=== PATIENT | female | born 1965 | race Caucasian/White ===

== ENCOUNTER 2020-12-13 12:13 | Emergency (ER) | payer OTHER ==
[2020-12-13 12:19] VITALS: BMI 40.6
[2020-12-13] MEDS ORDERED: ACETAMINOPHEN 1000 MG/100 ML VIAL IVPB ONE (13:15)
[2020-12-13] MEDS ORDERED: SODIUM CHLORIDE 1,000 ML IV STA (13:15)
[2020-12-13] MEDS ORDERED: morphine CARPU-JECT 2 MG/1 ML DISP.SYRIN IVPUSH ONE (13:21)
[2020-12-13] MEDS ORDERED: ACETAMINOPHEN 500 MG TABLET (FP) PO ONE (13:21)
[2020-12-13] MEDS ORDERED: ACETAMINOPHEN INJECTION 100 ML IVPB ONE (13:25)
[2020-12-13] MEDS ORDERED: morphine SULFATE 4 MG/ML VIAL ONE (14:18)
[2020-12-13 14:35] LABS: BASO % 0.5 % (0-2.0); EOS % 1.7 % (0-4.5); EPI CELLS >36 /uL (0-25.1); HEMATOCRIT 36.3 % (32.4-45.2); HEMOGLOBIN 12.3 GM/dL (10.7-15.3); HYALINE CASTS 2 /uL (0-3.1); LYMPH % 17.4 % (8-40); MCH 28.7 pg (25.7-33.7); MCHC 33.9 g/dl (32.0-36.0); MEAN CELL VOLUME 84.8 fl (80-96); MEAN PLT VOLUME 7.7 fl (7.5-11.1); MONO % 6.4 % (3.8-10.2); PH,URINE 6.5 (5.0-8.0); PLATELET COUNT 354 10^3/uL (134-434); RBC 4.28 M/mm3 (3.60-5.2); RDW 15.9 % (11.6-15.6); URINE APPEARANCE CLOUDY; URINE BACTERIA 1165 /uL (0-1359); URINE BILIRUBIN NEGATIVE (NEGATIVE); URINE COLOR YELLOW; URINE GLUCOSE (UA) 3+ (NEGATIVE); URINE KETONE NEGATIVE (NEGATIVE); URINE LEUK ESTERASE NEGATIVE (NEGATIVE); URINE NITRITE NEGATIVE (NEGATIVE); URINE PROTEIN 2+ (NEGATIVE); URINE UROBILINOGEN 0.2 mg/dL (0.2-1.0); URINE WBC 21 /uL (0-25.8); WHITE BLOOD COUNT 7.8 K/mm3 (4.0-10.0)
[2020-12-13] MEDS ORDERED: GABAPENTIN 300 MG CAPSULE PO ONE (14:38)
[2020-12-13] MEDS ORDERED: GABAPENTIN 100 MG CAPSULE ONE (14:40)
[2020-12-13 14:54] LABS: CHLORIDE 101 mmol/L (98-107); SODIUM 139 mmol/L (136-145)
[2020-12-13 14:57] LABS: CALCIUM 9.4 mg/dL (8.5-10.1); GLUCOSE,RANDOM 186 mg/dL (74-106)
[2020-12-13 14:58] LABS: ALBUMIN 3.4 g/dl (3.4-5.0); ANION GAP 9 MMOL/L (8-16); BLOOD UREA NITROGEN 20.5 mg/dL (7-18); CO2 28 mmol/L (21-32); LIPASE 172 U/L (73-393)
[2020-12-13 15:00] LABS: CREATININE 0.9 mg/dL (0.55-1.3); SGOT/AST 8 U/L (15-37); SGPT/ALT 21 U/L (13-61)
[2020-12-13 15:02] LABS: BILIRUBIN,TOTAL 0.3 mg/dL (0.2-1); TOT PROT 7.8 g/dl (6.4-8.2)
[2020-12-13 15:03] LABS: ALK PHOS 158 U/L (45-117)
[2020-12-13 15:38] LABS: URINE RBC 42.5 /uL (0-23.9)
[2020-12-13] MEDS ORDERED: SODIUM CHLORIDE 0.9% 500 ML INFUS.BAG IV ONE (16:48)
[2020-12-13 17:31] VITALS: BP 116/54; PULSE 95; TEMP 98.6
== END 2020-12-13 17:46 | disposition home or self-care (01) ==
LOC: JER 12:13
PROC: 3E033NZ Introduction of Analgesics, Hypnotics, Sedatives into Peripheral Vein, Percutaneous Approach (ICD-10-PCS; principal; 2020-12-13)
PROC: 3E033GC Introduction of Other Therapeutic Substance into Peripheral Vein, Percutaneous Approach (ICD-10-PCS; 2020-12-13)
PROC: 3E0337Z Introduction of Electrolytic and Water Balance Substance into Peripheral Vein, Percutaneous Approach (ICD-10-PCS; 2020-12-13)
DX: R10.9 Unspecified abdominal pain (principal)
CPT/HCPCS: 36415; 71045-TC-FY; 76705-TC; 80053; 81003; 83690; 84484; 85025; 87086; 96361; 96374; 96375; 99284-25; J0131

== ENCOUNTER 2023-04-07 15:01 | Inpatient (IN) | payer OTHER ==
[2023-04-07] MEDS ORDERED: ACETAMINOPHEN 1000 MG/100 ML BAG IVPB ONE (16:42)
[2023-04-07] MEDS ORDERED: SODIUM CHLORIDE 1,000 ML IV STA (16:42)
[2023-04-07] MEDS ORDERED: FAMOTIDINE 20 MG/50 ML IVPB 20 MG/50 ML MG IVPB ONE ×2 (16:42→17:22)
[2023-04-07] MEDS ORDERED: MAG HYDROX/AL HYDROX/SIMETH 30 ML UNIT-DOSE CUP PO ONE (16:42)
[2023-04-07] MEDS ORDERED: MAG HYDROX/AL HYDROX/SIMETH 30 ML UNIT-DOSE CUP ONE (17:21)
[2023-04-07] MEDS ORDERED: ACETAMINOPHEN INJECTION 100 ML IVPB ONE (17:24)
[2023-04-07 17:39] LABS: VENOUS BASE EXCESS -0.3 mmol/L (-2-2); VENOUS O2 SATURATION 49.5 % (70-80); VENOUS PCO2 48.6 mmHg (38-52); VENOUS PH 7.344 (7.310-7.410)
[2023-04-07 17:43] LABS: BASO % 0.3 % (0-2.0); EOS % 0.2 % (0-4.5); HEMATOCRIT 36.2 % (32.4-45.2); HEMOGLOBIN 11.9 GM/dL (10.7-15.3); LYMPH % 9.8 % (8-40); MCH 27.2 pg (25.7-33.7); MCHC 32.9 g/dl (32.0-36.0); MEAN CELL VOLUME 82.8 fl (80-96); MEAN PLT VOLUME 7.2 fl (7.5-11.1); MONO % 6.3 % (3.8-10.2); NEUT % 83.4 % (42.8-82.8); PLATELET COUNT 556 10^3/uL (134-434); RBC 4.37 M/mm3 (3.60-5.2); RDW 17.1 % (11.6-15.6); WHITE BLOOD COUNT 14.3 K/mm3 (4.0-10.0)
[2023-04-07 17:51] LABS: EPI CELLS 36 /uL (0-25.1); HYALINE CASTS 3 /uL (0-3.1); PH,URINE 5.5 (5.0-8.0); URINE APPEARANCE CLOUDY; URINE BACTERIA 242 /uL (0-1359); URINE BILIRUBIN NEGATIVE (NEGATIVE); URINE COLOR YELLOW; URINE GLUCOSE (UA) 1+ (NEGATIVE); URINE KETONE TRACE (NEGATIVE); URINE LEUK ESTERASE 1+ (NEGATIVE); URINE NITRITE NEGATIVE (NEGATIVE); URINE PROTEIN 2+ (NEGATIVE); URINE RBC 27 /uL (0-23.9); URINE UROBILINOGEN 0.2 mg/dL (0.2-1.0); URINE WBC 226 /uL (0-25.8)
[2023-04-07 17:54] LABS: CHLORIDE 94 mmol/L (98-107); POTASSIUM 3.4 mmol/L (3.5-5.1); SODIUM 132 mmol/L (136-145)
[2023-04-07 17:57] LABS: ANION GAP 11 mmol/L (4-13); CO2 27 mmol/L (21-32); MAGNESIUM 1.8 mg/dL (1.8-2.4)
[2023-04-07 18:00] LABS: CREATININE 1.3 mg/dL (0.55-1.3); SGOT/AST 5 U/L (15-37); SGPT/ALT 11 U/L (13-61)
[2023-04-07 18:01] LABS: TOT PROT 7.6 g/dl (6.4-8.2)
[2023-04-07 18:02] LABS: BILIRUBIN,TOTAL 0.4 mg/dL (0.2-1)
[2023-04-07 18:03] LABS: ALK PHOS 164 U/L (45-117)
[2023-04-07 18:04] LABS: GLUCOSE,RANDOM 427 mg/dL (74-106)
[2023-04-07] MEDS ORDERED: POTASSIUM CHLORIDE ORAL LIQUID 20 MEQ/15 ML PO ONE (18:10)
[2023-04-07] MEDS ORDERED: KETOROLAC TROMETHAMINE 30 MG/1 ML VIAL IM ONE (18:12)
[2023-04-07] MEDS ORDERED: KCL 10 MEQ IVPB 10 MEQ/100 ML INFUS.BAG IVPB ONE ×2 (18:12→19:00)
[2023-04-07] MEDS ORDERED: POTASSIUM CHLORIDE ORAL LIQUID 20 MEQ/15 ML ONE (18:12)
[2023-04-07] MEDS: KCL 10 MEQ IVPB 10 MEQ/100 ML INFUS.BAG IVPB SCH ×3 (18:12→19:57)
[2023-04-07] MEDS ORDERED: KETOROLAC TROMETHAMINE 30 MG/1 ML VIAL ONE (18:24)
[2023-04-07 18:34] LABS: LACTIC ACID 2.4 mmol/L (0.4-2.0)
[2023-04-07] MEDS ORDERED: ONDANSETRON *ODT* 4 MG TABLET SL ONE (19:01)
[2023-04-07] MEDS ORDERED: CEFTRIAXONE 1,000 MG in DEXTROSE 5%-WATER - 50 ML IVPB ONE (19:11)
[2023-04-07 19:28] LABS: CHLORIDE 98 mmol/L (98-107); POTASSIUM 4.6 mmol/L (3.5-5.1); SODIUM 132 mmol/L (136-145)
[2023-04-07 19:33] LABS: ALBUMIN 2.7 g/dl (3.4-5.0); ANION GAP 10 mmol/L (4-13); BLOOD UREA NITROGEN 27.5 mg/dL (7-18); CALCIUM 8.7 mg/dL (8.5-10.1); CO2 24 mmol/L (21-32)
[2023-04-07 19:34] LABS: LIPASE 71 U/L (73-393)
[2023-04-07 19:35] LABS: SGPT/ALT 10 U/L (13-61)
[2023-04-07 19:36] LABS: CREATININE 1.2 mg/dL (0.55-1.3); SGOT/AST 8 U/L (15-37)
[2023-04-07 19:37] LABS: BILIRUBIN,TOTAL 0.4 mg/dL (0.2-1)
[2023-04-07 19:39] LABS: ALK PHOS 147 U/L (45-117)
[2023-04-07 19:52] LABS: GLUCOSE,RANDOM 409 mg/dL (74-106)
[2023-04-07] MEDS ORDERED: INSULIN REGULAR HUMAN 100 UNITS/ML *VIAL IVPUSH ONE (19:55)
[2023-04-07] MEDS ORDERED: CEFTRIAXONE 1 GM/50 ML BAG ONE (19:58)
[2023-04-07] MEDS ORDERED: PIPERACILLIN/TAZOB 3.375 GM 3.375 GM in DEXTROSE 5%-WATER - 50 ML IVPB ONE (21:30)
[2023-04-07] MEDS ORDERED: VANCOMYCIN 1,000 MG in DEXTROSE 5%-WATER - 250 ML IVPB ONE (21:30)
[2023-04-07] MEDS ORDERED: PIPERACILLIN/TAZOB 3.375 GM 3.375 GM/50 ML BAG IVPB ONE (21:37)
[2023-04-07] MEDS ORDERED: VANCOMYCIN 1 GRAM (PRE-DOCKED) 1,000 MG/250 ML BAG IVPB ONE (21:37)
[2023-04-07] MEDS ORDERED: ALBUTEROL SO4 HFA INHALER IH PRN (22:59)
[2023-04-08] MEDS ORDERED: PIPERACILLIN/TAZOB 4.5 GM 4.5 GM/100 ML BAG IVPB ONE (02:10)
[2023-04-08] MEDS ORDERED: ACETAMINOPHEN 325 MG TABLET (FP) ONE (02:23)
[2023-04-08] MEDS: ACETAMINOPHEN 325 MG TABLET (FP) PO PRN ×2 (02:30→21:49)
[2023-04-08] MEDS: SODIUM CHLORIDE 1,000 ML IV SCH ×2 (02:30→18:22)
[2023-04-08] MEDS: PIPERACILLIN/TAZOB 4.5 GM 4.5 GM in DEXTROSE 5%-WATER 100 ML IVPB SCH ×2 (02:30→10:09)
[2023-04-08] MEDS: GABAPENTIN 400 MG CAPSULE PO SCH ×3 (06:42→21:48)
[2023-04-08] MEDS: INSULIN SLIDING SCALE (NOVOLOG) 1 VIAL SQ SCH ×4 (06:55→22:19)
[2023-04-08 09:02] LABS: BASO % 0.7 % (0-2.0); EOS % 1.1 % (0-4.5); HEMATOCRIT 32.2 % (32.4-45.2); HEMOGLOBIN 10.5 GM/dL (10.7-15.3); LYMPH % 16.1 % (8-40); MCH 27.3 pg (25.7-33.7); MCHC 32.6 g/dl (32.0-36.0); MEAN CELL VOLUME 83.8 fl (80-96); MONO % 6.6 % (3.8-10.2); NEUT % 75.5 % (42.8-82.8); PLATELET COUNT 464 10^3/uL (134-434); RBC 3.85 M/mm3 (3.60-5.2); RDW 17.1 % (11.6-15.6); WHITE BLOOD COUNT 11.1 K/mm3 (4.0-10.0)
[2023-04-08] MEDS ORDERED: VANCOMYCIN 1,000 MG in DEXTROSE 5%-WATER - 250 ML IVPB SCH (10:00)
[2023-04-08] MEDS: LOSARTAN POTASSIUM 50 MG TABLET PO SCH (10:13)
[2023-04-08] MEDS: amLODIPine BESYLATE 10 MG TABLET (FP) PO SCH (10:13)
[2023-04-08] MEDS: PANTOPRAZOLE 20 MG TABLET PO SCH (10:13)
[2023-04-08] MEDS: ASPIRIN 81 MG CHEWABLE TABLETS PO SCH (10:13)
[2023-04-08] MEDS ORDERED: ONDANSETRON 4 MG/2 ML VIAL IVPUSH PRN (10:40)
[2023-04-08 10:57] LABS: BLOOD UREA NITROGEN 26.5 mg/dL (7-18); CALCIUM 9.3 mg/dL (8.5-10.1); CHLORIDE 100 mmol/L (98-107); CO2 23 mmol/L (21-32); CREATININE 1.1 mg/dL (0.55-1.3); GLUCOSE,RANDOM 243 mg/dL (74-106); POTASSIUM 3.7 mmol/L (3.5-5.1); SODIUM 133 mmol/L (136-145)
[2023-04-08] MEDS: PIPERACILLIN/TAZOB 3.375 GM 3.375 GM in DEXTROSE 5%-WATER - 50 ML IVPB SCH (18:35)
[2023-04-08] MEDS ORDERED: INSULIN (NOVOLOG) ASPART 100 UNITS/ML 10ML VIAL ONE (21:36)
[2023-04-08] MEDS: ATORVASTATIN CA 40 MG TABLET (FP) PO SCH (21:48)
[2023-04-08] MEDS ORDERED: INSULIN (LEVEMIR) 100 UNITS/ML UNITS SQ SCH (22:00)
[2023-04-08] MEDS ORDERED: VANCOMYCIN/WATER FOR INJ (PEG) 1,000 MG/200 ML BAG IVPB ONE (22:00)
[2023-04-09] MEDS: SODIUM CHLORIDE 1,000 ML IV SCH (02:04)
[2023-04-09] MEDS: PIPERACILLIN/TAZOB 3.375 GM 3.375 GM in DEXTROSE 5%-WATER - 50 ML IVPB SCH ×3 (02:05→18:16)
[2023-04-09] MEDS: GABAPENTIN 400 MG CAPSULE PO SCH ×3 (07:07→21:47)
[2023-04-09] MEDS: INSULIN (NOVOLOG) ASPART 100 UNITS/ML 10ML VIAL SQ SCH ×3 (07:10→17:18)
[2023-04-09] MEDS: INSULIN (LEVEMIR) 100 UNITS/ML UNITS SQ SCH ×2 (07:12→17:17)
[2023-04-09 07:57] LABS: BASO % 0.6 % (0-2.0); EOS % 1.9 % (0-4.5); HEMATOCRIT 28.5 % (32.4-45.2); HEMOGLOBIN 9.4 GM/dL (10.7-15.3); LYMPH % 14.8 % (8-40); MCH 27.7 pg (25.7-33.7); NEUT % 74.7 % (42.8-82.8); PLATELET COUNT 372 10^3/uL (134-434); RDW 16.9 % (11.6-15.6); WHITE BLOOD COUNT 6.9 K/mm3 (4.0-10.0)
[2023-04-09 08:19] LABS: POTASSIUM 3.5 mmol/L (3.5-5.1)
[2023-04-09 08:21] LABS: BLOOD UREA NITROGEN 20.3 mg/dL (7-18); CALCIUM 8.3 mg/dL (8.5-10.1)
[2023-04-09 08:24] LABS: CREATININE 0.8 mg/dL (0.55-1.3)
[2023-04-09 08:26] LABS: BILIRUBIN,TOTAL 0.2 mg/dL (0.2-1)
[2023-04-09 08:36] LABS: ALBUMIN 2.3 g/dl (3.4-5.0)
[2023-04-09] MEDS: ASPIRIN 81 MG CHEWABLE TABLETS PO SCH (10:27)
[2023-04-09] MEDS: amLODIPine BESYLATE 10 MG TABLET (FP) PO SCH (10:27)
[2023-04-09] MEDS: LOSARTAN POTASSIUM 50 MG TABLET PO SCH (10:27)
[2023-04-09] MEDS: PANTOPRAZOLE 20 MG TABLET PO SCH (10:27)
[2023-04-09] MEDS: INSULIN SLIDING SCALE (NOVOLOG) 1 VIAL SQ SCH ×4 (10:29→21:46)
[2023-04-09] MEDS: ACETAMINOPHEN 325 MG TABLET (FP) PO PRN ×2 (10:48→21:52)
[2023-04-09 12:55] LABS: INR 1.04 (0.83-1.09); PROTHROMBIN TIME (PATIENT) 12.1 SEC (9.7-13.0)
[2023-04-09 17:01] LABS: BF WBC & OTHER NUCLEATED CELLS 2770 /mm3
[2023-04-09 17:30] LABS: BODY FLUID MONOCYTE 4 %
[2023-04-09 17:31] LABS: BODY FLUID MACROPHAGES 11 %; BODY FLUID MESOTHELIAL 5 %
[2023-04-09] MEDS ORDERED: INSULIN (NOVOLOG) ASPART 100 UNITS/ML 10ML VIAL ONE (21:16)
[2023-04-09] MEDS: ATORVASTATIN CA 40 MG TABLET (FP) PO SCH (21:47)
[2023-04-10] MEDS: SODIUM CHLORIDE 1,000 ML IV SCH (02:27)
[2023-04-10] MEDS: PIPERACILLIN/TAZOB 3.375 GM 3.375 GM in DEXTROSE 5%-WATER - 50 ML IVPB SCH ×3 (02:28→18:03)
[2023-04-10] MEDS: GABAPENTIN 400 MG CAPSULE PO SCH ×3 (06:34→21:20)
[2023-04-10] MEDS: INSULIN SLIDING SCALE (NOVOLOG) 1 VIAL SQ SCH ×4 (06:54→21:21)
[2023-04-10] MEDS: INSULIN (LEVEMIR) 100 UNITS/ML UNITS SQ SCH ×2 (06:54→16:40)
[2023-04-10] MEDS: INSULIN (NOVOLOG) ASPART 100 UNITS/ML 10ML VIAL SQ SCH ×3 (06:55→16:39)
[2023-04-10 09:08] LABS: HEMATOCRIT 27.7 % (32.4-45.2); HEMOGLOBIN 9.1 GM/dL (10.7-15.3); MCH 27.5 pg (25.7-33.7); MCHC 32.7 g/dl (32.0-36.0); PLATELET COUNT 412 10^3/uL (134-434); RDW 16.6 % (11.6-15.6); WHITE BLOOD COUNT 6.5 K/mm3 (4.0-10.0)
[2023-04-10 09:20] LABS: POTASSIUM 3.6 mmol/L (3.5-5.1)
[2023-04-10 09:23] LABS: CALCIUM 8.5 mg/dL (8.5-10.1)
[2023-04-10 09:24] LABS: ALBUMIN 2.2 g/dl (3.4-5.0); BLOOD UREA NITROGEN 15.3 mg/dL (7-18); MAGNESIUM 1.7 mg/dL (1.8-2.4)
[2023-04-10 09:26] LABS: CREATININE 0.8 mg/dL (0.55-1.3)
[2023-04-10 09:27] LABS: BILIRUBIN,TOTAL 0.2 mg/dL (0.2-1); TOT PROT 6.1 g/dl (6.4-8.2)
[2023-04-10 09:31] LABS: IRON SERUM 33 ug/dL (50-175); TOTAL IRON BINDING CAPACITY 230 ug/dL (250-450)
[2023-04-10] MEDS: ASPIRIN 81 MG CHEWABLE TABLETS PO SCH (09:59)
[2023-04-10] MEDS: amLODIPine BESYLATE 10 MG TABLET (FP) PO SCH (09:59)
[2023-04-10] MEDS: LOSARTAN POTASSIUM 50 MG TABLET PO SCH (09:59)
[2023-04-10] MEDS: PANTOPRAZOLE 20 MG TABLET PO SCH (09:59)
[2023-04-10] MEDS: ACETAMINOPHEN 325 MG TABLET (FP) PO PRN ×2 (10:04→19:57)
[2023-04-10] MEDS ORDERED: IRON SUCROSE INJECTION 200 MG in SODIUM CHLORIDE 90 ML IVPB ONE (13:30)
[2023-04-10] MEDS: ATORVASTATIN CA 40 MG TABLET (FP) PO SCH (21:20)
[2023-04-10 22:49] VITALS: BMI 30.7
[2023-04-11] MEDS: PIPERACILLIN/TAZOB 3.375 GM 3.375 GM in DEXTROSE 5%-WATER - 50 ML IVPB SCH ×3 (01:21→17:35)
[2023-04-11] MEDS: SODIUM CHLORIDE 1,000 ML IV SCH ×2 (01:23→13:52)
[2023-04-11] MEDS: ACETAMINOPHEN 325 MG TABLET (FP) PO PRN ×3 (05:11→22:56)
[2023-04-11] MEDS: GABAPENTIN 400 MG CAPSULE PO SCH ×3 (05:11→22:55)
[2023-04-11] MEDS: INSULIN (LEVEMIR) 100 UNITS/ML UNITS SQ SCH ×2 (06:38→17:11)
[2023-04-11] MEDS: INSULIN (NOVOLOG) ASPART 100 UNITS/ML 10ML VIAL SQ SCH ×3 (06:40→17:14)
[2023-04-11] MEDS: INSULIN SLIDING SCALE (NOVOLOG) 1 VIAL SQ SCH ×4 (06:43→23:01)
[2023-04-11] MEDS: amLODIPine BESYLATE 10 MG TABLET (FP) PO SCH (10:27)
[2023-04-11] MEDS: LOSARTAN POTASSIUM 50 MG TABLET PO SCH (10:27)
[2023-04-11] MEDS: PANTOPRAZOLE 20 MG TABLET PO SCH (10:27)
[2023-04-11] MEDS: ASPIRIN 81 MG CHEWABLE TABLETS PO SCH (10:27)
[2023-04-11] MEDS ORDERED: INSULIN (NOVOLOG) ASPART 100 UNITS/ML 10ML VIAL ONE (21:29)
[2023-04-11] MEDS: ATORVASTATIN CA 40 MG TABLET (FP) PO SCH (22:55)
[2023-04-12] MEDS: SODIUM CHLORIDE 1,000 ML IV SCH ×3 (00:48→23:03)
[2023-04-12] MEDS: PIPERACILLIN/TAZOB 3.375 GM 3.375 GM in DEXTROSE 5%-WATER - 50 ML IVPB SCH ×3 (02:32→18:10)
[2023-04-12] MEDS: ACETAMINOPHEN 325 MG TABLET (FP) PO PRN ×2 (07:16→18:11)
[2023-04-12] MEDS: GABAPENTIN 400 MG CAPSULE PO SCH ×3 (07:16→23:04)
[2023-04-12] MEDS: INSULIN SLIDING SCALE (NOVOLOG) 1 VIAL SQ SCH ×4 (07:17→23:16)
[2023-04-12] MEDS: INSULIN (LEVEMIR) 100 UNITS/ML UNITS SQ SCH ×2 (07:17→17:29)
[2023-04-12] MEDS: INSULIN (NOVOLOG) ASPART 100 UNITS/ML 10ML VIAL SQ SCH ×3 (07:17→17:32)
[2023-04-12 08:18] LABS: EOS % 1.9 % (0-4.5); HEMATOCRIT 30.7 % (32.4-45.2); HEMOGLOBIN 10.3 GM/dL (10.7-15.3); LYMPH % 23.3 % (8-40); MCH 27.6 pg (25.7-33.7); MCHC 33.4 g/dl (32.0-36.0); MEAN CELL VOLUME 82.6 fl (80-96); MEAN PLT VOLUME 6.7 fl (7.5-11.1); MONO % 7.9 % (3.8-10.2); NEUT % 65.9 % (42.8-82.8); PLATELET COUNT 473 10^3/uL (134-434); RBC 3.72 M/mm3 (3.60-5.2); RDW 16.7 % (11.6-15.6); WHITE BLOOD COUNT 6.6 K/mm3 (4.0-10.0)
[2023-04-12 08:26] LABS: POTASSIUM 4.1 mmol/L (3.5-5.1)
[2023-04-12 08:51] LABS: ALBUMIN 2.5 g/dl (3.4-5.0); BLOOD UREA NITROGEN 11.3 mg/dL (7-18)
[2023-04-12 08:52] VITALS: RESP 18
[2023-04-12 08:54] LABS: CREATININE 0.6 mg/dL (0.55-1.3)
[2023-04-12 08:55] LABS: BILIRUBIN,TOTAL 0.7 mg/dL (0.2-1); TOT PROT 6.7 g/dl (6.4-8.2)
[2023-04-12] MEDS: amLODIPine BESYLATE 10 MG TABLET (FP) PO SCH (10:39)
[2023-04-12] MEDS: ASPIRIN 81 MG CHEWABLE TABLETS PO SCH (10:39)
[2023-04-12] MEDS: LOSARTAN POTASSIUM 50 MG TABLET PO SCH (10:39)
[2023-04-12] MEDS: PANTOPRAZOLE 20 MG TABLET PO SCH (10:39)
[2023-04-12] MEDS: ATORVASTATIN CA 40 MG TABLET (FP) PO SCH (23:04)
[2023-04-13] MEDS: ACETAMINOPHEN 325 MG TABLET (FP) PO PRN ×2 (01:05→10:08)
[2023-04-13] MEDS: SODIUM CHLORIDE 1,000 ML IV SCH (01:07)
[2023-04-13] MEDS: PIPERACILLIN/TAZOB 3.375 GM 3.375 GM in DEXTROSE 5%-WATER - 50 ML IVPB SCH ×2 (02:15→10:07)
[2023-04-13] MEDS: GABAPENTIN 400 MG CAPSULE PO SCH ×2 (05:46→14:23)
[2023-04-13] MEDS: INSULIN (LEVEMIR) 100 UNITS/ML UNITS SQ SCH (08:11)
[2023-04-13] MEDS ORDERED: INSULIN (NOVOLOG) ASPART 100 UNITS/ML 10ML VIAL ONE (08:16)
[2023-04-13] MEDS: INSULIN (NOVOLOG) ASPART 100 UNITS/ML 10ML VIAL SQ SCH ×2 (08:22→11:28)
[2023-04-13] MEDS: INSULIN SLIDING SCALE (NOVOLOG) 1 VIAL SQ SCH ×2 (08:23→11:29)
[2023-04-13] MEDS: PANTOPRAZOLE 20 MG TABLET PO SCH (10:07)
[2023-04-13] MEDS: LOSARTAN POTASSIUM 50 MG TABLET PO SCH (10:07)
[2023-04-13] MEDS: amLODIPine BESYLATE 10 MG TABLET (FP) PO SCH (10:07)
[2023-04-13] MEDS: ASPIRIN 81 MG CHEWABLE TABLETS PO SCH (10:07)
[2023-04-13] MEDS: ALBUTEROL SO4 2.5/IPRATROPIUM 0.5 INH SOL 3 ML VIAL.NEB. NEB SCH ×2 (12:40→15:43)
[2023-04-13 15:55] VITALS: BP 127/72; PULSE 103; TEMP 98.3
[2023-04-14 15:09] LABS: BODY FLUID ALBUMIN 2.7 g/dL (Not Estab.)
== END 2023-04-13 16:00 | disposition home or self-care (01) | DRG 139 ==
LOC: JER 15:01 → JERBED 21:44 → J7W 04-08 05:52
PROVIDERS: ADMIT Family Medicine; ATTEND Family Medicine
PROC: 0W993ZZ Drainage of Right Pleural Cavity, Percutaneous Approach (ICD-10-PCS; principal; 2023-04-09)
DX: J18.9 Pneumonia, unspecified organism (principal); J90 Pleural effusion, not elsewhere classified; E11.65 Type 2 diabetes mellitus with hyperglycemia; I10 Essential (primary) hypertension; R10.11 Right upper quadrant pain; R63.4 Abnormal weight loss; K21.9 Gastro-esophageal reflux disease without esophagitis
CPT/HCPCS: 0241U-QW; 36415; 71045-TC-FY; 71250-TC; 74177-TC; 76942; 80048; 80053; 81003; 82010; 82042; 82150; 82272; 82465; 82803; 82945; 82962; 83036; 83540; 83550; 83605; 83615; 83690; 83735; 83986; 84157; 84478; 84484; 85025; 85027; 85610; 87040; 87070; 87075; 87077; 87081; 87086; 87102; 87116; 87205; 87206; 87210; 87899; 88108; 88305-TC; 93005; 93010; 94640; 94761; 99285-25; J1756; Q9967

== ENCOUNTER 2023-04-22 14:14 | Inpatient (IN) | payer OTHER ==
[2023-04-22] MEDS ORDERED: ACETAMINOPHEN INJECTION 100 ML IVPB ONE (17:40)
[2023-04-22] MEDS ORDERED: ONDANSETRON 4 MG/2 ML VIAL ONE (17:40)
[2023-04-22] MEDS: ACETAMINOPHEN 1000 MG/100 ML BAG IVPB ONE (18:14)
[2023-04-22] MEDS: ONDANSETRON 4 MG/2 ML VIAL IVPUSH ONE (18:14)
[2023-04-22] MEDS: SODIUM CHLORIDE 0.9% 500 ML INFUS.BAG IV ONE (18:14)
[2023-04-22] MEDS: LACTATED RINGERS SOLUTION 1000 ML INFUS.BAG IV ONE (18:15)
[2023-04-22 18:24] LABS: VENOUS BASE EXCESS -0.7 mmol/L (-2-2); VENOUS O2 SATURATION 98.1 % (70-80); VENOUS PCO2 34.5 mmHg (38-52); VENOUS PH 7.44 (7.310-7.410)
[2023-04-22 18:29] LABS: BASO % 0.7 % (0-2.0); EOS % 0.4 % (0-4.5); HEMATOCRIT 35.6 % (32.4-45.2); HEMOGLOBIN 11.6 GM/dL (10.7-15.3); LYMPH % 20.2 % (8-40); MCHC 32.6 g/dl (32.0-36.0); MONO % 7.8 % (3.8-10.2); NEUT % 70.9 % (42.8-82.8); PLATELET COUNT 613 10^3/uL (134-434); RBC 4.29 M/mm3 (3.60-5.2); RDW 17.2 % (11.6-15.6); WHITE BLOOD COUNT 10.2 K/mm3 (4.0-10.0)
[2023-04-22 18:44] LABS: POTASSIUM 3.9 mmol/L (3.5-5.1)
[2023-04-22 18:46] LABS: CALCIUM 9.7 mg/dL (8.5-10.1)
[2023-04-22 18:47] LABS: BLOOD UREA NITROGEN 24.4 mg/dL (7-18); MAGNESIUM 1.8 mg/dL (1.8-2.4)
[2023-04-22 18:51] LABS: BILIRUBIN,TOTAL 0.4 mg/dL (0.2-1); TOT PROT 7.9 g/dl (6.4-8.2)
[2023-04-22 19:04] LABS: ALBUMIN 3.1 g/dl (3.4-5.0)
[2023-04-22] MEDS ORDERED: VANCOMYCIN/WATER 1250 MG 1,250 MG/250 ML BAG IVPB ONE (20:32)
[2023-04-22] MEDS: VANCOMYCIN/WATER 1250 MG 1,250 MG/250 ML BAG IVPB ONE (20:34)
[2023-04-22] MEDS ORDERED: IBUPROFEN 400 MG TABLET (FP) PO ONE (20:47)
[2023-04-22 20:50] LABS: EPI CELLS >36 /uL (0-25.1); HYALINE CASTS 4 /uL (0-3.1); URINE APPEARANCE CLOUDY; URINE BACTERIA 245 /uL (0-1359); URINE BILIRUBIN NEGATIVE (NEGATIVE); URINE COLOR DK YELLOW; URINE GLUCOSE (UA) 3+ (NEGATIVE); URINE KETONE 2+ (NEGATIVE); URINE LEUK ESTERASE NEGATIVE (NEGATIVE); URINE NITRITE NEGATIVE (NEGATIVE); URINE PROTEIN 3+ (NEGATIVE); URINE RBC 15 /uL (0-23.9); URINE UROBILINOGEN 0.2 mg/dL (0.2-1.0); URINE WBC 32 /uL (0-25.8)
[2023-04-22] MEDS: INSULIN ASPART SLIDING SCALE (NOVOLOG) 1 VIAL SQ SCH (21:07)
[2023-04-22] MEDS: IBUPROFEN 400 MG TABLET (FP) PO ONE (21:07)
[2023-04-22 21:28] LABS: POTASSIUM 3.5 mmol/L (3.5-5.1)
[2023-04-22 21:30] LABS: BLOOD UREA NITROGEN 23.8 mg/dL (7-18); CALCIUM 9.5 mg/dL (8.5-10.1)
[2023-04-22] MEDS ORDERED: INSULIN ASPART SLIDING SCALE (NOVOLOG) 1 VIAL SQ SCH (22:00)
[2023-04-22] MEDS ORDERED: ALBUTEROL SO4 HFA INHALER IH PRN (23:00)
[2023-04-23] MEDS: ACETAMINOPHEN 325 MG TABLET (FP) PO PRN (06:12)
[2023-04-23] MEDS: PANTOPRAZOLE 20 MG TABLET PO SCH (06:13)
[2023-04-23] MEDS: metFORMIN HCL 500 MG TABLET (FP) PO SCH (06:14)
[2023-04-23 08:40] LABS: BASO % 0.5 % (0-2.0); EOS % 1.6 % (0-4.5); HEMATOCRIT 31.3 % (32.4-45.2); HEMOGLOBIN 10.5 GM/dL (10.7-15.3); LYMPH % 15.9 % (8-40); MCH 27.6 pg (25.7-33.7); MCHC 33.6 g/dl (32.0-36.0); MEAN CELL VOLUME 82.2 fl (80-96); MEAN PLT VOLUME 6.9 fl (7.5-11.1); MONO % 5.9 % (3.8-10.2); NEUT % 76.1 % (42.8-82.8); PLATELET COUNT 419 10^3/uL (134-434); RBC 3.81 M/mm3 (3.60-5.2); RDW 17.1 % (11.6-15.6); WHITE BLOOD COUNT 7.6 K/mm3 (4.0-10.0)
[2023-04-23 08:48] LABS: POTASSIUM 3.1 mmol/L (3.5-5.1)
[2023-04-23 08:50] LABS: CALCIUM 9.2 mg/dL (8.5-10.1)
[2023-04-23 08:51] LABS: BLOOD UREA NITROGEN 24.5 mg/dL (7-18)
[2023-04-23] MEDS: ARTIFICIAL TEARS OPHTHALMIC DROPS OU SCH (11:41)
[2023-04-23] MEDS: GABAPENTIN 400 MG CAPSULE PO SCH (11:42)
[2023-04-23] MEDS: LOSARTAN POTASSIUM 50 MG TABLET PO SCH (11:42)
[2023-04-23] MEDS: ASPIRIN 81 MG CHEWABLE TABLETS PO SCH (11:42)
[2023-04-23] MEDS: amLODIPine BESYLATE 5 MG TABLET (FP) PO SCH (11:42)
[2023-04-23] MEDS: POLYETHYLENE GLYCOL (HEALTHYLAX) 3350 17 GM PACKET PO SCH (13:01)
[2023-04-23 15:57] VITALS: BMI 25.9
[2023-04-23] MEDS: ATORVASTATIN CA 10 MG TABLET (FP) PO SCH (21:21)
[2023-04-23] MEDS: FAMOTIDINE 20 MG TABLET PO ONE (22:45)
[2023-04-24 05:12] VITALS: RESP 18
[2023-04-24] MEDS ORDERED: ALBUTEROL SO4 HFA INHALER IH PRN (09:43)
[2023-04-24] MEDS: MAG HYDROX/AL HYDROX/SIMETH 30 ML UNIT-DOSE CUP PO ONE (10:30)
[2023-04-24] MEDS: POTASSIUM CHLORIDE ORAL LIQUID 20 MEQ/15 ML PO ONE (12:20)
[2023-04-24 14:15] VITALS: BP 128/87; PULSE 116; TEMP 98.8
== END 2023-04-24 18:30 | disposition home or self-care (01) | DRG 385 ==
LOC: JER 14:14 → JERBED 16:28 → J6S 04-23 03:51 → JERBED 04-23 22:08 → J6S 04-23 22:23
PROVIDERS: ADMIT Internal Medicine; ATTEND Internal Medicine
DX: L30.9 Dermatitis, unspecified (principal); I10 Essential (primary) hypertension; E11.65 Type 2 diabetes mellitus with hyperglycemia; K21.9 Gastro-esophageal reflux disease without esophagitis; E86.0 Dehydration; Z85.3 Personal history of malignant neoplasm of breast; R91.8 Other nonspecific abnormal finding of lung field; R11.2 Nausea with vomiting, unspecified
CPT/HCPCS: 0241U-QW; 36415; 71045-TC-FY; 71046-TC-FY; 80048; 80053; 81003; 82010; 82803; 82962; 83605; 83735; 84484; 85025; 87040; 87086; 93005; 93010; 93970-TC; 99285-25; J0131